=== PATIENT | male | born 1960 | race Caucasian/White ===

== ENCOUNTER 2018-07-26 01:43 | Emergency (ER) | payer BC, OTHER ==
[2018-07-26] MEDS ORDERED: METHYLPREDNISOLONE 125 MG INJ ONE (02:19)
[2018-07-26] MEDS ORDERED: LEVALBUTEROL 1.25 MG/3 ML NEB ONE ×2 (02:20→05:27)
--- NOTE | 2018-07-26 05:17 | ER ---
Nurse's Notes [facility] Name: Bry Keller Age: 58 yrs Sex: Male : 1960 Arrival Date: 07/26/2018 Time: 01:45 Bed 15 Private MD: Diagnosis: Shortness of breath;Wheezing Presentation: 07/26 01:53 Presenting complaint: Patient states: This morning I started having trouble breathing jb4 and it has progressively gotten worse. I feel like I'm not getting enough oxygen. Transition of care: patient was not received from another setting of care. Onset of symptoms was July 26, 2018. Risk Assessment: Do you want to hurt yourself or someone else? Patient reports no desire to harm self or others. Initial Sepsis Screen: Does the patient meet any 2 criteria? No. Patient's initial sepsis screen is negative. Does the patient have a suspected source of infection? No. Patient's initial sepsis screen is negative. Care prior to arrival: None. 01:53 Method Of Arrival: Ambulatory jb4 01:53 Acuity: KAITLYNN 3 jb4 Triage Assessment: 01:56 General: Appears in no apparent distress. uncomfortable, Behavior is calm, cooperative, jb4 appropriate for age. Pain: Denies pain. EENT: No signs and/or symptoms were reported regarding the EENT system. Neuro: Level of Consciousness is awake, alert, obeys commands, Oriented to person, place, time, situation. Cardiovascular: Heart tones S1 S2 present Patient's skin is warm and dry. Respiratory: Reports shortness of breath on exertion labored breathing Airway is patent Respiratory effort is even, labored, Respiratory pattern is regular, symmetrical, Breath sounds are diminished bilaterally. Breath sounds with wheezes bilaterally. Onset: The symptoms/episode began/occurred today, the patient has mild shortness of breath. GI: No signs and/or symptoms were reported involving the gastrointestinal system. : No signs and/or symptoms were reported regarding the genitourinary system. Derm: Skin is intact, Skin is pink, warm \T\ dry. Musculoskeletal: Circulation, motion, and sensation intact. Historical: - Allergies: 01:56 No Known Allergies; jb4 - Home Meds: 01:56 Sudafed Oral [Active]; jb4 - PMHx: 01:56 None; jb4 - PSHx: 01:56 L Ankle Surgery; jb4 - Immunization history:: Adult Immunizations up to date, Flu vaccine is not up to date. - Social history:: Smoking status: Patient uses tobacco products, smokes one pack cigarettes per day. Patient uses alcohol, but reports only rare drinking. - Ebola Screening: : No symptoms or risks identified at this time. - Family history:: not pertinent. - Hospitalizations: : No recent hospitalization is reported. Screenin:44 Abuse screen: Denies threats or abuse. Nutritional screening: No deficits noted. jb4 Tuberculosis screening: No symptoms or risk factors identified. Fall Risk None identified. Assessment: 01:56 General: See triage assessment.. jb4 03:22 Reassessment: Patient appears in no apparent distress at this time. Patient and/or jb4 family updated on plan of care and expected duration. Pain level reassessed. Patient is alert, oriented x 3, equal unlabored respirations, skin warm/dry/pink. Patient states feeling better. Patient states symptoms have improved. Respiratory: Airway is patent Respiratory effort is even, unlabored, Respiratory pattern is regular, symmetrical, Breath sounds with wheezes bilaterally. 04:30 Reassessment: Patient appears in no apparent distress at this time. Patient and/or jb4 family updated on plan of care and expected duration. Pain level reassessed. Patient is alert, oriented x 3, equal unlabored respirations, skin warm/dry/pink. Patient states feeling better. 05:41 Reassessment: Patient appears in no apparent distress at this time. Patient and/or jb4 family updated on plan of care and expected duration. Pain level reassessed. Patient is alert, oriented x 3, equal unlabored respirations, skin warm/dry/pink. Patient states feeling better. Vital Signs: 01:56 BP 184 / 102; Pulse 97; Resp 20; Temp 98.3; Pulse Ox 94% on R/A; Weight 115.67 kg (R); jb4 Height 6 ft. 0 in. (182.88 cm) (R); 03:22 BP 137 / 83; Pulse 107; Resp 18; Pulse Ox 91% on R/A; jb4 04:33 BP 162 / 99; Pulse 94; Resp 18; Pulse Ox 93% on 2 lpm NC; jb4 05:15 BP 158 / 92; Pulse 92; Resp 16; Pulse Ox 93% on 2 lpm NC; jb4 01:56 Body Mass Index 34.58 (115.67 kg, 182.88 cm) jb4 03:22 Pt placed on 2l NC while sleeping jb4 ED Course: 01:45 Patient arrived in ED. 01:45 Max Holland, RN is Primary Nurse. jb4 01:54 Triage completed. jb4 01:55 Joel Landaverde MD is Attending Physician. rn 01:56 Arm band placed on left wrist. jb4 02:00 Patient has correct armband on for positive identification. Placed in gown. Bed in low jb4 position. Call light in reach. Pulse ox on. NIBP on. 02:00 Inserted saline lock: 18 gauge in right antecubital area, using aseptic technique. jb4 Blood collected. 02:18 X-ray completed. Portable x-ray completed in exam room. Patient tolerated procedure sg4 well. 02:19 XRAY Chest (1 view) In Process Unspecified. EDMS 05:43 Assist provider with bone marrow aspiration. IV discontinued, intact, bleeding jb4 controlled. Administered Medications: 02:27 Drug: SOLU-Medrol 125 mg Route: IVP; Site: right antecubital; jb4 03:00 Follow up: Response: No adverse reaction jb4 02:28 Drug: Xopenex (3) 1.25 mg Route: Inhalation; jb4 03:00 Follow up: Response: No adverse reaction; Wheezing diminished jb4 05:21 Drug: Xopenex 1.25 mg Route: Inhalation; jb4 05:39 Follow up: Response: No adverse reaction jb4 Outcome: 05:17 Discharge ordered by . rn 05:43 Discharged to home ambulatory. jb4 05:43 Condition: stable 05:43 Discharge instructions given to patient, Instructed on discharge instructions, follow up and referral plans. medication usage, Demonstrated understanding of instructions, follow-up care, medications, Prescriptions given X 3. 05:44 Patient left the ED. jb4 Signatures: Dispatcher [employer] EDDeloris Klein Roman, MD MD rn Bryson, James, RN RN jb4 [place] sg4 Corrections: (The following items were deleted from the chart) 04:33 03:22 BP 137 / 83; Pulse 107bpm; Resp 18bpm; Pulse Ox 91% RA; jb4 jb4
--- NOTE | 2018-07-26 05:17 | EDPHYS ---
Physician Documentation [facility] Name: Bry Keller Age: 58 yrs Sex: Male : 1960 Arrival Date: 07/26/2018 Time: 01:45 Bed 15 Private MD: ED Physician Joel Landaverde HPI: 07/26 02:48 This 58 yrs old Male presents to ER via Ambulatory with complaints of rn Breathing Difficulty. 02:48 The patient has shortness of breath at rest, with light activity. Onset: The rn symptoms/episode began/occurred yesterday. Duration: The symptoms are continuous. The patient's shortness of breath is aggravated by exertion, light activity, talking, walking. Severity of symptoms: At their worst the symptoms were mild in the emergency department the symptoms are unchanged. The patient has experienced similar episodes in the past. Reports smoking now for 40 years, no fever, + sore throat, + sob and wheezing. . Historical: - Allergies: 01:56 No Known Allergies; jb4 - Home Meds: 01:56 Sudafed Oral [Active]; jb4 - PMHx: 01:56 None; jb4 - PSHx: 01:56 L Ankle Surgery; jb4 - Immunization history:: Adult Immunizations up to date, Flu vaccine is not up to date. - Social history:: Smoking status: Patient uses tobacco products, smokes one pack cigarettes per day. Patient uses alcohol, but reports only rare drinking. - Ebola Screening: : No symptoms or risks identified at this time. - Family history:: not pertinent. - Hospitalizations: : No recent hospitalization is reported. ROS: 02:48 Constitutional: Negative for fever, chills, and weight loss, Eyes: Negative for injury, rn pain, redness, and discharge, ENT: + sore throat Neck: Negative for injury, pain, and swelling, Cardiovascular: Negative for chest pain, palpitations, and edema, Respiratory: Negative for pleuritic chest pain Abdomen/GI: Negative for abdominal pain, nausea, vomiting, diarrhea, and constipation, MS/Extremity: Negative for injury and deformity, Skin: Negative for injury, rash, and discoloration, Neuro: Negative for headache, weakness, numbness, tingling, and seizure. Exam: 02:48 Constitutional: This is a well developed, well nourished patient who is awake, alert, rn with mild tachypnea Head/Face: Normocephalic, atraumatic. Eyes: Pupils equal round and reactive to light, extra-ocular motions intact. Lids and lashes normal. Conjunctiva and sclera are non-icteric and not injected. Cornea within normal limits. Periorbital areas with no swelling, redness, or edema. ENT: MMM, no stridor Cardiovascular: Regular rate and rhythm with a normal S1 and S2. No gallops, murmurs, or rubs. No pulse deficits. Respiratory: + right lung base wheezing> left lung, + mild tachypnea, speaking 5-7 word sentences Abdomen/GI: soft, non-tender Skin: Warm, dry with normal turgor. Normal color with no rashes, no lesions, and no evidence of cellulitis. MS/ Extremity: Pulses equal, no cyanosis. Neurovascular intact. Full, normal range of motion. Equal circumference. Neuro: Awake and alert, GCS 15, oriented to person, place, time, and situation. Cranial nerves II-XII grossly intact. Motor strength 5/5 in all extremities. Sensory grossly intact. Cerebellar exam normal. Normal gait. Vital Signs: 01:56 BP 184 / 102; Pulse 97; Resp 20; Temp 98.3; Pulse Ox 94% on R/A; Weight 115.67 kg (R); jb4 Height 6 ft. 0 in. (182.88 cm) (R); 03:22 BP 137 / 83; Pulse 107; Resp 18; Pulse Ox 91% on R/A; jb4 04:33 BP 162 / 99; Pulse 94; Resp 18; Pulse Ox 93% on 2 lpm NC; jb4 05:15 BP 158 / 92; Pulse 92; Resp 16; Pulse Ox 93% on 2 lpm NC; jb4 01:56 Body Mass Index 34.58 (115.67 kg, 182.88 cm) jb4 03:22 Pt placed on 2l NC while sleeping jb4 MDM: 01:55 Patient medically screened. rn 05:15 Differential diagnosis: Chronic Obstructive Pulmonary Disease pneumonia, Pneumothorax rn pulmonary edema, reactive airway disease. Data reviewed: vital signs, nurses notes, lab test result(s), radiologic studies, plain films, and as a result, I will discharge patient. Counseling: I had a detailed discussion with the patient and/or guardian regarding: the historical points, exam findings, and any diagnostic results supporting the discharge/admit diagnosis, radiology results, the need for outpatient follow up, to return to the emergency department if symptoms worsen or persist or if there are any questions or concerns that arise at home. Response to treatment: the patient's symptoms have markedly improved after treatment. Special discussion: I discussed with the patient/guardian in detail that at this point there is no indication for admission to the hospital. It is understood, however, that if the symptoms persist or worsen the patient needs to return immediately for re-evaluation. ED course: Reports feels at baseline. Counseled regarding smoking cessation and need for pcp f/u for PFTs. . 07/26 02:02 Order name: Strep rn 07/26 02:02 Order name: Flu rn 07/26 02:03 Order name: Group A Streptococcus Rapid Sc EDAR 07/26 03:09 Order name: Throat Culture EDAR 07/26 04:53 Order name: Influenza Screen (A EDAR 07/26 02:02 Order name: XRAY Chest (1 view) rn 07/26 02:02 Order name: IV Start; Complete Time: 02:35 rn Administered Medications: 02:27 Drug: SOLU-Medrol 125 mg Route: IVP; Site: right antecubital; 4 03:00 Follow up: Response: No adverse reaction jb4 02:28 Drug: Xopenex (3) 1.25 mg Route: Inhalation; jb4 03:00 Follow up: Response: No adverse reaction; Wheezing diminished jb4 05:21 Drug: Xopenex 1.25 mg Route: Inhalation; jb4 05:39 Follow up: Response: No adverse reaction jb4 Disposition: 07/26/18 05:17 Discharged to Home. Impression: Shortness of breath, Wheezing. - Condition is Stable. - Discharge Instructions: How to Use an Inhaler, Shortness of Breath. - Prescriptions for Prednisone 20 mg Oral Tablet - take 3 tablet by ORAL route once daily for 5 days; 15 tablet. Zithromax Z- Mushtaq 250 mg Oral Tablet - take 1 tablet by ORAL route as directed for 5 days Day 1 - take two (2) tablets one time. Day 2, 3, 4 , 5 take one (1) tablet once daily.; 6 tablet. Albuterol Sulfate 90 mcg/actuation - inhale 1-2 puff by INHALATION route every 4-6 hours; 1 Inhaler. - Medication Reconciliation Form, Thank You Letter, Antibiotic Education, Prescription Opioid Use form. - Follow up: Private Physician; When: As needed; Reason: Recheck today's complaints, Re-evaluation by your physician. - Problem is new. - Symptoms have improved. Signatures: Dispatcher [employer] [facility] Joel Landaverde MD MD rn Bryson, James, RN RN jb4 Corrections: (The following items were deleted from the chart) 04:53 02:03 Influenza Screen (A ordered. [facility] EDAR 04:53 04:10 Influenza Screen (A reviewed. rn EDMS 05:44 05:17 07/26/2018 05:17 Discharged to Home. Impression: Shortness of breath; Wheezing. jb4 Condition is Stable. Forms are Medication Reconciliation Form, Thank You Letter, Antibiotic Education, Prescription Opioid Use. Follow up: Private Physician; When: As needed; Reason: Recheck today's complaints, Re-evaluation by your physician. Problem is new. Symptoms have improved. rn
--- NOTE | 2018-07-26 09:57 | RAD REPORT ---
EXAM DESCRIPTION: RAD - Chest Single View - 07/26/2018 2:18 am CLINICAL HISTORY: Cough, difficulty breathing COMPARISON: October 2015 TECHNIQUE: AP portable chest image was obtained 0213 hours . FINDINGS: No focal infiltrate, mass or failure finding. Lung markings are similar to comparison. Hea rt and vasculature are normal. No measurable pleural effusion and no pneumothorax. No acute bony abno rmality seen. No acute aortic findings suspected. IMPRESSION: No acute cardiopulmonary process. No significant interval change.
== END 2018-07-26 05:44 | disposition home or self-care (01) ==
LOC: ER 01:43
DX: R06.02 Shortness of breath (principal); R06.2 Wheezing; F17.210 Nicotine dependence, cigarettes, uncomplicated
CPT/HCPCS: 71045; 87070; 87081; 87804; 96374; 99285; J2930